=== PATIENT | male | born 1970 | race Caucasian/White ===

== ENCOUNTER → 2017-12-30 16:03 | Outpatient (CLI) | payer OTHER, SELFPAY ==
--- NOTE | 2017-12-30 16:20 | EKG12_ITS ---
Test Reason : PRE OP Blood Pressure : / mmHG Vent. Rate : 072 BPM Atrial Rate : 072 BPM P-R Int : 168 ms QRS Dur : 098 ms QT Int : 400 ms P-R-T Axes : 020 -33 019 degrees QTc Int : 438 ms Normal sinus rhythm Left axis deviation Incomplete right bundle branch block Minimal voltage criteria for LVH, may be normal variant Abnormal ECG Confirmed by DAKOTA BROOKS, BRET ([id number]), shell molder FRANCISCO SANCHEZ ([id number]) on 12/31/2017 2:36:08 PM Referred By: Letyt Bernabe Confirmed By:BRET DUNCAN MD
[2017-12-30 17:17] LABS: Hematocrit 44.2 % (40-54); Mean Corpuscular Volume 92.5 fL (80-94); Mean Platelet Vol. 9.8 fl (6.2-12.0); Platelet Count 197 K/mm3 (150-450); RBC Distribution Width SD 40.2 fl (35.1-43.9); Red Blood Count 4.78 M/mm3 (4.6-6.2); White Blood Count 5.7 K/mm3 (4.4-11.0)
[2017-12-30 17:55] LABS: Hemoglobin 15.6 g/dl (13.0-16.5); Mean Corp Hgb Conc 35.3 g/gl (32-36); Mean Corpuscular Hgb 32.6 pg (27.0-32.0); Scan Indicated on CBC? Y/N NO
[2017-12-30 18:22] LABS: Anion Gap 8 (5-15); BUN 14 mg/dL (7-18); BUN/Creat Ratio 15.7 RATIO (10-20); Calcium,Total 9.4 mg/dL (8.5-10.1); Chloride 104 mmol/L (98-107); Creatinine, Serum 0.89 mg/dL (0.70-1.30); EST Glomerular Filtration Rate 96 mL/min (>60); Est Glom Filt Rate - Afr Amer 116 mL/min (>60); Glucose 82 mg/dL (74-106); Potassium 3.9 mmol/L (3.5-5.1); Sodium Level 141 mmol/L (136-145)
== END ==
PROVIDERS: Family Provider Internal Medicine; PCP Internal Medicine; Visit Provider Nurse Practitioner Adult Health
DX: Z01.812 Encounter for preprocedural laboratory examination (principal); N43.3 Hydrocele, unspecified
CPT/HCPCS: 36415; 80048; 85027; 93005

== ENCOUNTER → 2018-01-24 11:39 | Outpatient (CLI) | payer OTHER, SELFPAY ==
--- NOTE | 2018-01-24 15:31 | STRESSREP ---
Stress Test Report Exercise stress test. 48-year-old male with a history of chest pain. Stress protocol: Resting EKG demonstrates normal sinus rhythm with a rate of 68 bpm normal intervals and noted resting blood pressure is 118/76 centimeters of mercury. The patient exercised according to regular Roderick protocol for total duration of 9 minutes and 30 seconds. Patient completed 30 seconds to stage III of the Roderick protocol the maximum heart rate attained was 151 bpm which was 88% of maximum predicted heart rate the maximum workload attained was 10.9 metabolic equivalents. The patient maintained sinus rhythm throughout the recording. At rest there were no ST or T-wave changes noted suggest ischemia peak exercise no ST or T-wave changes were noted suggest ischemia no clinical angina was noted. The test was terminated due to completion of the test. Conclusion: Exercise stress test with no EKG criteria for ischemia at a high workload. Good functional capacity. No clinical angina noted.
== END ==
PROVIDERS: Family Provider Internal Medicine; PCP Internal Medicine
DX: Z01.818 Encounter for other preprocedural examination (principal); I45.10 Unspecified right bundle-branch block
CPT/HCPCS: 93017

== ENCOUNTER 2020-11-17 16:23 | Emergency (ER) | payer OTHER, BC, SELFPAY ==
[2020-11-17 16:24] VITALS: BP 155/87; PULSE 86; RESP 16; TEMP 37.1; O2SAT 98; BMI 28.4
--- NOTE | 2020-11-17 16:46 | EX.ED.UPPERE ---
HPI History of Present Illness Chief Complaint: Upper Extremity Injury Informant: patient Narrative Narrative: 50-year-old male states that 4 days ago he was lifting a industrial fan and trying to turn it over with pronation when he got an electric shock into his arm. He states now his bicep muscle does not look appropriately. He denies any significant pain or bruising. He is worried that he may have tore his biceps. Patient denies any pain. He denies any paresthesias PFSH PFSH no medical history Allergy/AdvReac Type Severity Reaction Status Date / Time No Known Allergies Allergy Verified 11/17/20 16:29 no surgical history (Noncontributory) Social History (Updated 11/17/20 @ 16:[address] Venkat Tracy, DO) household members: significant other Smoking Status: Never smoker ROS ROS ED Constitutional Constitutional ED: Denies chills or weight loss Eyes Eyes: Denies change in vision or diplopia ENT ENT ED: Denies ear pain, rhinorrhea or sore throat Cardiovascular Cardiovascular: Denies chest pain, orthopnea, palpitations or racing heartbeat Respiratory/Chest Respiratory/Chest: Denies cough, dyspnea or orthopnea Gastrointestinal Gastrointestinal: Denies abdominal pain, diarrhea, nausea or vomiting Genitourinary Genitourinary ED: Denies dysuria, hematuria or urinary frequency Musculoskeletal Musculoskeletal: Reports other Details: Right biceps injury ; Denies arthralgias or myalgias Integumentary Denies abscess or rash Neurologic Neurologic: Denies headache(s) or weakness Psychiatric Psychiatric: Denies anxiety, depression, suicidal ideation or suicidal thoughts Endocrine Endocrinology: Denies polydipsia, polyphagia or polyuria Allergic/Immunologic Allergic/Immunologic ED: Denies mouth swelling, tongue swelling or urticaria EXAM Physical Exam Const Vital Signs: 11/17/20 16:24 Temperature 98.7 F Temperature Source Temporal Pulse Rate 86 Respiratory Rate 16 Blood Pressure 155/87 H Blood Pressure Mean 109 Pulse Ox 98 Oxygen Delivery Method Room Air Positive well nourished and well developed General Appearance ED: well developed HEENT Reports normocephalic, head/scalp atraumatic and moist mucous membranes Eyes PERRL and EOMs intact bilaterally Neck no lymphadenopathy, supple and no JVD Resp normal respiratory effort and clear to auscultation bilaterally Cardio regular rate, regular rhythm and no murmurs GI normal to inspection, nondistended, normoactive bowel sounds and non-tender Palpation: soft Back/Spine no CVA tenderness and normal ROM Extremity normal to inspection Extremity Narrative: There is an abnormal appearance to the biceps on the right. It appears that he has had a disruption of the long head of the biceps tendon. Neurovascular intact distal. Patient has no pain at the origin or the insertion points of the muscle. General Extremety ED: Negative for edema General Extremity: Negative for edema Neuro oriented x3 and CN's II-XII intact bilaterally Sensorium / Orientation: alert Motor Exam: strength 5/5 throughout Psych mental status grossly normal Mood & Affect: Negative for depressed or tearful Skin no rashes or lesions noted and no wounds MDM MDM MDM Narrative Medical decision making narrative: The patient will be referred to orthopedics. Dr. Cristhian Jones is on-call for no doc orthopedics. Patient will be given work restrictions. Discharge Plan Triage Chief Complaint: Upper Extremity Injury ED Provider: Venkat Tracy Dx/Rx/DC Orders Clinical Impression: Biceps tendon rupture Primary Care Provider: Brandyn García Referrals: Crishtian Jones MD [STAFF PHYSICIAN] - As soon as possible Brandyn García MD [Primary Care Provider] - Disposition Disposition: Home, self care
[2020-11-17 17:32] VITALS: RESP 16
== END 2020-11-17 17:32 | disposition home or self-care (01) ==
PROVIDERS: Emergency Provider Emergency Medicine; PCP Internal Medicine
DX: S46.111A Strain of muscle, fascia and tendon of long head of biceps, right arm, initial encounter (principal); W86.8XXA Exposure to other electric current, initial encounter; Y93.9 Activity, unspecified; Y92.9 Unspecified place or not applicable
CPT/HCPCS: 99283

== ENCOUNTER 2025-07-11 14:51 | Emergency (ER) | payer BC, SELFPAY ==
[2025-07-11 14:52] VITALS: BP 144/96; PULSE 70; RESP 16; TEMP 36.3; O2SAT 100; BMI 27.3
--- NOTE | 2025-07-11 15:11 | EX.ED.DYSGE1 ---
HPI History of Present Illness Chief Complaint: Lower Extremity Injury PFSH PFSH Allergy/AdvReac Type Severity Reaction Status Date / Time No Known Allergies Allergy Verified 07/11/25 14:53 Social History household members: significant other Smoking Status: Never smoker EXAM Physical Exam Const Vital Signs: 07/11/25 14:52 07/11/25 16:13 Temperature 97.4 F L 98.1 F Temperature Source Oral Pulse Rate 70 74 Respiratory Rate 16 14 Blood Pressure 144/96 H 127/74 H Blood Pressure Mean 112 91 Pulse Ox 100 98 Oxygen Delivery Method Room Air [facility] [place] Narrative Medical decision making narrative: HISTORY OF PRESENT ILLNESS: Chief complaint: Right leg pain 55-year-old male presents concern for right calf pain but he denies injury. Denies chest pain, shortness of breath or syncope. Notes pain in his right calf that started this morning. Pain is worse with walking and plantarflexion. No known trauma. Patient denies active cancer, being bedridden for greater than 3 days, denies unilateral leg swelling, denies any varicose veins, denies any calf tenderness, denies tenderness along deep venous system. Denies major surgery within 12 weeks, recent paralysis, previous DVT. REVIEW OF SYSTEMS: Pertinent positives: Right calf pain Pertinent negatives: Chest pain, shortness of breath PHYSICAL EXAM: Nursing triage notes reviewed, Vital signs reviewed Constitutional: please see [facility] Neck: No stridor, no JVD, full neck ROM Lungs: Clear to auscultation, No wheezing or rales. No increased work of breathing, no conversational dyspnea, no accessory muscle use, no nasal flaring. No respiratory distress noted Heart: Regular rate and rhythm, No murmurs, No rubs and No gallops, 2+ distal pulses (radial, femoral, posterior tibial) in all extremities Extremities: No edema, grossly symmetric leg diameter bilaterally, no obvious deformities, slight calf tenderness. Neuro: N intact sensation L1-S1 dermatomal distributions. Intact 5/5 strength in hip flexion (T12-L3). Knee extension (L2-L4). Ankle dorsiflexion (L4-L5). Ankle plantar flexion (S1). Great toe extension (L5). 2+ patellar and Achilles DTRs. Skin: No rash or lesions noted MEDICAL DECISION MAKING: Chief Complaint: please see HPI External records reviewed: Reviewed prior imaging studies: No recent advanced imaging of the extremities specifically no venous duplex studies noted Factors affecting care: none Social determinants of health: none History obtained from others: none Consults: none MDM Narrative: The patient was initially hemodynamically stable, afebrile and nontoxic-appearing. Exam with right calf TTP but no obvious lower extremity edema I considered the following differential diagnosis: Musculoskeletal etiology, DVT I obtained duplex ultrasound to further determine if the patient was suffering from a life-threatening etiology. ALL IMAGES (IF OBTAINED) HAVE BEEN PERSONALLY REVIEWED AND INTERPRETED BY MYSELF. DVT study was reported as negative by painter decorator. The synthesis of the patient's history, physical exam and imaging studies suggest likely musculoskeletal etiology. Encouraged calf stretching, light strengthening after approximate 24 to 48 hours of rest. Discussed strict return precautions. The patient and/or family, caregivers express understanding. The patient and/or family, caregivers agrees with the plan. Shared decision making: I will have a discussion with the patient and or visitors regarding risk/benefits of further testing or admission. They will be made aware of of the risk/benefits inherent in this decision they will be given the opportunity to voice understanding. Total critical care time today provided was at least 0 minutes. This excludes separately billable procedures. Critical care time (if documented) is secondary to the patient having high probability of clinically significant/life threatening deterioration in the patient's condition which required my urgent intervention. Impression: 1. Right calf pain Dispo: Discharge This note was generated with [employer] dictation software. It may contain incorrect words, spelling, and punctuation that were not noted in review of the chart prior to signing. Discharge Plan Triage Chief Complaint: Lower Extremity Injury ED Provider: Kamar Taylor Dx/Rx/DC Orders Instructions: Lower Body Exercises: Calf Stretch, Calf Raise (Strength), ED Muscle Strain, Extremity Primary Care Provider: Brandyn García Referrals: Brandyn García MD [Primary Care Provider, Internal Medicine] Activity Restrictions/Additional Instructions: Thank you for trusting us with your care today! The ultrasound of your lower extremity did not reveal signs of a blood clot. You are likely suffering from musculoskeletal strain. Please rest for the first 24 to 48 hours. After this time please begin stretching and strengthening exercises. Please see provided handout. Please take Tylenol (2 pills, 650 mg), ibuprofen (2 pills, 400 mg) every 6 hours as needed for pain and fever control. Please return to the emergency department if your symptoms change or worsen. Specifically develop chest pain, shortness of breath, severe leg pain, discoloration or if you lose consciousness. Please follow with your primary care physician for further outpatient evaluation and management. Print Language: Mozambican Disposition Disposition: Home, Self Care Discharge Date/Time: 07/11/25 16:14
--- NOTE | 2025-07-11 15:22 | VDLE_ITS ---
Reason For Study Reason For Study: RLE Pain RIGHT GSV is normal. CFV is compressible, spontaneous, phasic, competent and demonstrates normal augmentation. FV is compressible, spontaneous, phasic, competent and demonstrates normal augmentation. POP V is compressible, spontaneous, phasic, competent and demonstrates normal augmentation. T/P Trunk is compressible. PTV is compressible. RT PerV is compressible. Procedure This is a venous duplex using B-mode, color flow and spectral Doppler. Exam performed portable in ED. The exam was diagnostic. A preliminary report was called and/or faxed to Dr Taylor. VL/Venous Duplex US, Unilateral Interpretation Summary Deep veins of the right lower extremity are patent and compressible segmentally . There is no evidence of right lower extremity deep vein thrombosis. Valvular competence appears intact within the p roximal deep venous system on the right . The right great saphenous vein appears patent and compressible segmentally. Ordering Physician: Kamar Taylor Referring Physician: Brandyn García M.D. Performed By: Dereck Corbett RVT
--- OUTSIDE RECORDS SUMMARY | 2025-07-11 15:55 | XMS RPT_ITS | CCD ---
Author Organization [facility] Inform ion Partnership [facility] Care Team Providers Care Loading Shovel Oiler Name Role Phone LYNDSAY HANCOCK Unavailable Unavailable Brandyn Myers Unavailable Unavailable Brandyn Myers Unavailable Unavailable Brandyn Myers MD Primary Care Provider [phone] Lelo BUSINESS SOLUTIONS CONSULTANT.Sumaya FRANCISCO Unavailable [phone] SUMAYA LIND Attending Unavailable BRANDYN MYERS Primary Care Unavailable BRANDYN MYERS Attending Unavailable BRANDYN MYERS Primary Care Unavailable ANABEL PRESLEY Attending Unavailable BRANDYN MYERS Referring Unavailable BRANDYN MYERS Primary Care Unavailable NICOLE ARTEAGA Referring Unavailable BRANDYN MYERS Primary Care Unavailable Medications Current Medications Medication Drug Class(es) Dates Sig (Normalized) Sig (Original) L.acid/B.bifidum/B.an imal/FOS (PROBIOTIC COMPLEX ORAL) (7 sources) take 1 capsule by mo ut once daily L.acid/B.bifidum/B.a nimal/FOS (PROBIOTIC COMPLEX ORAL) Take 1 capsule by mouth once daily. Active take 1 capsule by mo uth once daily L.acid/B.bifidum/B.animal/FOS (PROBIOTIC COMPLEX ORAL) Take 1 capsule by mouth once daily. 0 Active meloxicam 15 mg oral tablet (1 source) Nonsteroidal Anti-inflammatory Drug Start: 05-22-2024 End: 06-21-2024 take 1 tablet by mouth once daily meloxicam (MOBIC) 15 mg tablet Indications: Arthritis of right acromioclavicular joint Take 1 tablet by mouth once daily. 30 tablet 05/22/2024 06/21/2024 Active Multivitamin preparation (7 sources) take 1 tablet by mouth once daily multivitamin (DAILY MULTIPLE ORAL) Take 1 tablet by mouth once daily. Active take 1 tablet by mouth once vladimir y multivitamin (DAILY MULTIPLE ORAL) Take 1 tablet by mouth once daily. 0 Active Completed/Discontinued Medications Medication Drug Class(es) Dates Sig (Normalized) Sig (Original) bisacodyl 5 mg delayed release oral tablet (6 sources) Stimulant Laxative Start: 01-06-2021 End: 10-18-2024 Bisacodyl (DULCOLAX) 5 mg tab Indications: Lower abdominal pain , Change in bowel habits Use as directed for Miralax / Gatorade Bowel Prep Kit 4 tablet 01/06/2021 10/18/2024 Discontinued (Course of therapy completed) polyethylene glycol 3350 27921 mg powder for oral solution (6 sources) Osmotic Laxative Start: 01-06-2021 End: 10-18-2024 polyethylene glycol 3350 (MIRALAX, GLYCOLAX) 17 gram/dose powder Indications: Lower abdominal pain , Change in bowel habits Use as directed for Miralax / Gatorade Bowel Prep Kit 238 g 01/06/2021 10/18/2024 Discontinued (Course of therapy completed) predniSONE 10 mg oral tablet (2 sources) Start: 05-22-2024 End: 10-18-2024 predniSONE (DELTASONE) 10 mg tablet Indications: Arthritis of right acromioclavicular joint 6 tabs po day 1, then 5 tabs day 2, 4 tabs day 3, 3 tabs day 4, 2 tabs day 5, 1 tab day 6. 21 tablet 05/22/2024 10/18/2024 Discontinued (Course of therapy completed) Problems Active Problems Problem Classification Problem Date Documented Date Episodic/Chronic Conduction disorders (7 sources) Incomplete right bundle branch block; Translations: [Unspecified right bundle-branch block] Onset: 01-03-2018 01-03-2018 Chronic Osteoarthritis (1 source) Arthritis of right acromioclavicular joint; Translations: [Primary osteoarthritis, right shoulder] 05-22-2024 Chronic Other connective tissue disease (2 sources) Tendinitis of right rotator cuff; Translations: [Other shoulder lesions, right shoulder] 02-16-2024 Episodic Other male genital disorders (7 sources) Secondary erectile dysfunction; Translations: [Male erectile dysfunction, unspecified] Onset: 11-19-2017 11-19-2017 Chronic Other screening for suspected conditions (not mental disorders or infectious disease) (1 source) Other specified abnormal findings of blood chemistry; Translations: [Other nonspecific findings on examination of blood] 02-16-2024 Episodic Screening and history of mental health and substance abuse codes (2 sources) Patient encounter status; Translations: [Encounter for screening for depression] 02-16-2024 Episodic Past or Other Problems Problem Classification Problem Date Documented Da te Episodic/Chronic Other connective tissue disease (8 sources) Disorder of Achilles tendon; Translations: [Other specified disorders of tendon, right ankle and foot] Onset: 02-16-2024 02-16-2024 Episodic Other connective tissue disease (1 source) Other shoulder lesions, right shoulder; Translations: [Tendinitis of right rotator cuff] Onset: 05-22-2024 Episodic Other male genital disorders (7 sources) Disorder of reproductive system; Translations: [Hydrocele, unspecified] Onset: 03-08-2015 Resolved: 08-18-2017 08-18-2017 Episodic Other male genital disorders (7 sources) Disorder of male genital organ; Translations: [Hydrocele, unspecified] Onset: 08-18-2017 Resolved: 11-05-2020 11-05-2020 Episodic Other non-traumatic joint disorders (3 sources) Pain in right shoulder; Translations: [Pain in joint, shoulder region] Onset: 05-22-2024 05-01-2024 Episodic Residual codes; unclassified (8 sources) Tobacco use and exposure - finding; Translations: [Tobacco use] Onset: 03-08-2015 07-14-2021 Episodic Results Test Name Value Interpretation Reference Range Facil aiyana Horvath 02-05-2025 [facility] Telephone (INTMWS) ERVIN RING ([id number]) 1970 M Date Time Provider Department 02/05/25 BRANDYN MYERS INTMWS During your visit today, we recorded the following information about you: Zulema Rooney RN 02/05/2025 3:09 PM Signed Spouse (Brittany) calls to report that patient had blood work done through [facility] and some of his results were off including his liver enzymes but she was unsure of actual results as she didn't have them with her. Brittany wanting provider to review. Reports she is dropping a copy of labs off tomorrow. Offered appointment but wants labs reviewed by provider first. LIANA Meneses Janice, LPN 02/08/2025 10:04 AM Signed Rec'd and to pcp to review. AST was 42 Normal range per report is 0-40 Brandyn Myers MD 02/11/2025 12:09 PM Signed This is of doubtful significance. If he has no symptoms of liver or GI disease, monitor only and recheck next year here in our lab. Consume alcohol in moderation. Maintain a healthy weight. Schedule appointment if with related concerns. Marilou Varner LPN 02/12/2025 8:24 AM Signed Brittany/ notified of below recommendation, verbalized understanding. Offered to schedule appt for 10/2025, she declined, will call for annual with lab orders. Marilou Varner LPN Allergies As of Date: 02/05/2025 (No Known Allergies) Date Reviewed: 10/18/2024 Reviewed by: Sumaya Lind APRN.WIRE DROPPER - Fully Assessed Reason for Visit: Results [95] Prescriptions as of 02/12/2025 - multivitamin (DAILY MULTIPLE ORAL) Take 1 tablet by mouth once daily. - L.acid/B.bifidum/B.anim al/FOS (PROBIOTIC COMPLEX ORAL) Take 1 capsule by mouth once daily. Problem List As Of Date 02/05/2025 Noted Resolved Hydrocele, left [N43.3] 03/08/2015 08/18/2017 Tobacco use [Z72.0] 03/08/2015 Right hydrocele [N43.3] 08/18/2017 11/05/2020 Impotence of organic origin [N52.9] 11/19/2017 Incomplete RBBB w/ left axis deviation [I45.10] 01/03/2018 Achilles tendinosis of both ankles [M67.873, M6*02/16/2024 Encounter Status:Closed by MARILOU VARNER on 02/12/25 Normal [facility] CNOVon 10-18-2024 CNOV Office Visit (INTMWS ) ERVIN RING ([id number]) 1970 M Date Time Provider Department 10/18/24 6:00 PM SUMAYA LIND INTMWS During your visit today, we recorded the following information about you: Pulse Respiration Blood pressure Weight 79/minute 12/minute 124/80 81.6 kg Height 1.68 m Sumaya Lind, BUSINESS SOLUTIONS CONSULTANT.WIRE DROPPER 10/18/2024 6:20 PM Signed We discussed your overall health and physical exam findings: - Your physical exam today was normal, and I do not have any concerns based on the exam. - Your blood pressure was initially elevated at 142/90 but improved to 124/80 when rechecked. This is consistent with your usual readings at home, which are typically in the 120/80 range. No further action is needed at this time. - Your weight today was 179 lbs, which is consistent with your previous weight of 176 lbs. We discussed your lifestyle and habits: - You reported that you are active at work but do not engage in specific exercise routines. I encourage incorporating regular physical activity into your routine to support overall health. - Your diet could include more fruits, vegetables, and whole grains. Consider making small, gradual changes to improve your nutrition. - You no longer smoke but do chew tobacco. Reducing or quitting tobacco use is recommended to lower your risk of long-term health issues. - You drink alcohol occasionally, about a few beers per week. Continue to limit alcohol consumption to support liver health and overall well-being. We discussed your preventive care and screenings: - Your colonoscopy in 2020 was normal, and you are not due for another until 2030. - You are up to date on all other screenings, including blood work and liver enzyme testing, which were normal at your last [facility] screening. - You declined the pneumonia vaccine today. We discussed your interest in vitamin and mineral levels: - Routine testing for vitamin and mineral levels is not typically recommended unless you have specific symptoms such as fatigue, dizziness, or shortness of breath. Based on your current health and diet, there is no indication for testing at this time. - If you are concerned about vitamin D levels, you may consider taking a vitamin D supplement during the winter months, as sunlight exposure is limited. Follow-up: - I recommend scheduling an annual physical exam once a year to monitor your health and address any new concerns. You can schedule this closer to the time it is due. - If you experience any new or worsening symptoms, such as chest pain, shortness of breath, significant fatigue, or other concerns, please contact our office. Let us know if you have any additional questions or concerns. Sumaya Lind, BUSINESS SOLUTIONS CONSULTANT.[facility] 10/18/2024 6:30 PM Signed CC: Patient presents with: Physical HPI The patient consented to the use of [employer] software for draft documentation of the visit consistent with [facility]?s Notice of Privacy Practices. Ervin is a 54-year-old male, with a history of tobacco use, presenting for an annual physical exam. Ervin denies any new medical problems since his last visit. He reports a history of smoking but quit years ago and currently uses chewing tobacco. He consumes alcohol, approximately a few beers per week, and denies any drug use, including e-cigarettes or vaping. Ervin is not currently exercising but describes himself as active at work. He acknowledges that his diet is not as healthy as he would like, stating, I should really get more than what I do. He takes a multivitamin and a probiotic. He expresses a desire to know his vitamin and trace mineral levels, asking if he could pay for the tests himself. He also inquires about tests to check his liver function and whether he has a fatty liver. He denies any new family medical problems. He had a colonoscopy in 2020 and is up to date on his screenings. He declines the flu and pneumonia vaccines. Review of Systems Constitutional: Negative. HENT: Negative. Eyes: Negative. Respiratory: Negative. Cardiovascular: Negative. Gastrointestinal: Negative. Endocrine: Negative. Genitourinary: Negative. Skin: Negative. Neurological: Negative. 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 MEDICATIONS multivitamin (DAILY MULTIPLE ORAL) Take 1 tablet by mouth once daily. L.acid/B.bifidum/B.anim al/FOS (PROBIOTIC COMPLEX ORAL) Take 1 capsule by mouth once daily. FAMILY HISTORY Problem Rela (more content not included)... 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 Referred by Dr. Myers. States in February he went swimming and thinks he over did it. He had no swam for years. 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 He has pain with certain movements. X-rays done today. Anabel Presley PA-C 05/26/2024 2:23 PM Signed Anabel Presley PA-C Department of Orthopaedics [facility] [address] [place] [address] Dept: [phone] Dept May 22, 2024 CHIEF COMPLAINT: New and Pain of the Right Shoulder and Last seen 09/16/17 with BP Right thumb fracture Mr. Ervin Ring is a 54 year old male who presents with intermittent pain in the anterior aspect of his right shoulder which has been bothering him since this past February. Patient states that he was out swimming and he believes he may have overdone it. Pain today is a 3 out of 10 intermittent aching. Pain only bothers him with certain activities, he has difficulty discerning which activities. He denies any nighttime pain, no weakness in the arm. 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 He has not taken any type of an oral anti-inflammatory. He is right-hand dominant. ASSESSMENT: M19.011 Arthritis of right acromioclavicular joint (primary encounter diagnosis) PLAN: Shoulder exam is rather benign, he does have some AC joint arthritis. We discussed trying a short course of an oral steroid paired with a month of an anti-inflammatory. Certainly if shoulder pain persist we may consider some additional imaging of the shoulder and/or a corticosteroid injection. Patient agrees to plan. Happy to see him back next month for reevaluation. Will continue to monitor patient for Arthritis of right acromioclavicular joint (primary encounter diagnosis), patient to schedule visit as per follow up discussed. Mr. Ervin Ring was advised as to contrast therapies and/or to take analgesics/anti-inflamm atories as needed and all contraindications were reviewed. OBJECTIVE: Mr. Ervin Ring is a pleasant 54 year old in no apparent distress. Gen:There were no vitals taken for this visit. nl development, non obese, no deformities ENT: Normocephalic, normal hearing, moist mucosa CV: Pulses:Radial= 2+ and symmetric, capillary refill < 2 secs, no peripheral edema/varicosities Skin: no rash, bruising or lesions. Good turgor. Psych: cooperative and appropriate, alert and oriented x 3, good mood and affect. Musculoskeletal: Supple range of motion of the cervical spine without pain. Spurling signs are negative. No atrophy of the deltoid and shoulder musculature. Right shoulder is nontender to palpation over the SC joint and clavicle. Tender to palpation over the AC joint. No tenderness to palpation over the posterior shoulder, nontender at anterior lateral corner of the shoulder and greater tuberosity. Nontender at the bicipital groove and coracoid. Active range of motion is 165 degrees of forward elevation, 50 degrees external rotation, and internal rotation to the upper lumbar spine. Passive range of motion is 170 degrees, 55 degrees, respectively. No laxity with anterior and posterior stress. Positive Neer and negative Membreno impingement signs. 5/5 strength with supraspinatus, infraspinatus and subscapularis. Sensation is intact in the axillary, radial, median and ulnar nerve distribution Imaging: IMPRESSION: Negative Administrative Services Manager: MARLA Transcribe Date/Time: May 26 2024 11:14A Dictated by : JOCELYN CARDENAS MD This examination was interpreted and the report reviewed and electronically signed by: JOCELYN CARDENAS MD on May 26 2024 11:15AM EST Results-Findings * * *Final Report* * * DATE OF EXAM: May 22 2024 2:15PM [id number] - XR SHLDR >/=3V AP/EVETTE AP/OTHR RT / PROCEDURE REASON: Right shoulder pain, unspecified chronicity * * * * Physician Interpretation * * * * PROCEDURE: Right shoulder INDICATION: Right shoulder pain, unspecified chronicity .Right shoulder pain since February, pt went swimming and shoulder has hurt ever since. TECHNIQUE: XR SHLDR >/=3V AP/EVETTE AP/OTHR RT COMPARISON: None FINDINGS: No fractures or dislocations are seen. The glenohumeral and acromioclavicular joints are within normal limits. (more content not included)... Normal [facility] XR SHLDR >/=3V AP/EVETTE AP/OTH R RTon 05-22-2024 XR SHLDR >/=3V AP/EVETTE AP/OTHR RT * * *Final Report* * * DATE OF EXAM: May 22 2024 2:15PM [id number] - XR SHLDR >/=3V AP/EVETTE AP/OTHR RT / PROCEDURE REASON: Right shoulder pain, unspecified chronicity * * * * Physician Interpretation * * * * PROCEDURE: Right shoulder INDICATION: Right shoulder pain, unspecified chronicity .Right shoulder pain since February, pt went swimming and shoulder has hurt ever since. TECHNIQUE: XR SHLDR >/=3V AP/EVETTE AP/OTHR RT COMPARISON: None FINDINGS: No fractures or dislocations are seen. The glenohumeral and acromioclavicular joints are within normal limits. Subacromial space is maintained. No significant degenerative change is seen. No soft tissue calcifications are seen. Upper ribs are intact. IMPRESSION: Negative Administrative Services Manager: PSCB Transcribe Date/Time: May 26 2024 11:14A Dictated by : JOCELYN CARDENAS MD This examination was interpreted and the report reviewed and electronically signed by: JOCELYN CARDENAS MD on May 26 2024 11:15AM EST [id number] Normal [facility] 04-17-2024 [facility] Telephone (INTMWS) ERVIN RING ([id number]) 1970 M Date Time Provider Department 04/17/24 BRANDYN MYERS INTWS During your visit today, we recorded the following information about you: Abby Smith LPN 04/17/2024 9:25 AM Signed Pt's calling to see if pt can get a referral to a specialist regarding his right shoulder. Pain persisting. Pt has an apt with you on Wednesday04/21/24 and also wondering if he needs this if you are okay with referring him to a specialist. Please advise back. If she does not answer please leave a detailed message on phone and she will call back. ERASMO Prescott Victor H, MD 04/17/2024 11:51 PM Signed ASSESSMENT/PLAN: 1. Tendinitis of right rotator cuff - ICD9: 726.10, ICD10: M75.81 - CONSULT TO ORTHOPAEDICS MD Telly Mckeon Helen E, LPN 04/18/2024 10:14 AM Signed Please call to schedule consult. La Alvarez LPN, RN 04/18/2024 1:40 PM Signed Patient's calls and notified that consult order placed. transferred to formulation scientist to schedule appointment. La Mcmanus RN Allergies As of Date: 04/17/2024 (No Known Allergies) Date Reviewed: 02/16/2024 Reviewed by: Marilou Varner LPN - Fully Assessed Reason for Visit: Consult [502] Primary Visit Diagnosis:Tendinitis of right rotator cuff [M75.81] Order(s):CONSULT TO ORTHOPAEDICS [9026] Order #: [id number]: 1 FUTURE Prescriptions as of 04/18/2024 - multivitamin (DAILY MULTIPLE ORAL) Take 1 tablet by mouth once daily. - L.acid/B.bifidum/B.anim al/FOS (PROBIOTIC COMPLEX ORAL) Take 1 capsule by mouth once daily. - polyethylene glycol 3350 (MIRALAX, GLYCOLAX) 17 gram/dose powder Use as directed for Miralax / Gatorade Bowel Prep Kit - Bisacodyl (DULCOLAX) 5 mg tab Use as directed for Miralax / Gatorade Bowel Prep Kit Problem List As Of Date 04/17/2024 Noted Resolved Hydrocele, left [N43.3] 03/08/2015 08/18/2017 Tobacco use [Z72.0] 03/08/2015 Right hydrocele [N43.3] 08/18/2017 11/05/2020 Impotence of organic origin [N52.9] 11/19/2017 Incomplete RBBB w/ left axis deviation [I45.10] 01/03/2018 Achilles tendinosis of both ankles [M67.873, M6*02/16/2024 Encounter Status:Closed by LA MCMANUS on 04/18/24 [facility] CNOVon 02-16-2024 CNOV Office Visit (INTMWS ) ERVIN RING ([id number]) 1970 M Date Time Provider Department 02/16/24 3:40 PM BRANDYN MYERS INTMWS During your visit today, we recorded the following information about you: Temperature Pulse Respiration Blood pressure 98.6 degrees 76/minute 16/minute 122/76 Weight 79.8 kg Brandyn Myers MD 02/16/2024 5:36 PM Signed This note was created using Tagentriter. Subjective Ervin Ring is a 54 year old male here with his . He had minor right shoulder pains off and on chronically. This weekend, he went swimming for the first time in decades. He woke up Wednesday with significant pain of the right anterior shoulder. This was improving now, without medication. He had chronic lumps in his heels that become uncomfortable at the end of the workday wearing his work boots. He had no pain wearing rubber shoes. He has been here only for urgent concerns, and does not come for check ups. He declined vaccines. He was here to review [facility] screening done 10/14/23. Review of Systems Constitutional: Negative for activity change and fatigue. 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 Drug use: No Comment: none in past 10 yrs Current Outpatient Medications Medication Sig multivitamin (DAILY MULTIPLE ORAL) Take 1 tablet by mouth once daily. L.acid/B.bifidum/B.anim al/FOS (PROBIOTIC COMPLEX ORAL) Take 1 capsule by mouth once daily. polyethylene glycol 3350 (MIRALAX, GLYCOLAX) 17 gram/dose powder Use as directed for Miralax / Gatorade Bowel Prep Kit (Patient not taking: Reported on 02/16/2024) Bisacodyl (DULCOLAX) 5 mg tab Use as directed for Miralax / Gatorade Bowel Prep Kit (Patient not taking: Reported on 02/16/2024) No current facility-administered medications for this visit. Objective BP 122/76 (BP Site: Left Arm, BP Position: Sitting, BP Cuff Size: Large Adult) Pulse 76 Temp 37 ?C (98.6 ?F) (Temporal) Resp 16 Wt 79.8 kg (176 lb) BMI 27.95 kg/m? Physical Exam Constitutional: Appearance: Normal appearance. Musculoskeletal: Right shoulder: Tenderness and crepitus present. No swelling, deformity or bony tenderness. Normal range of motion. Normal strength. Left shoulder: Normal. Right ankle: Right Achilles Tendon: Defect present. No tenderness. Root's test negative. Left ankle: Left Achilles Tendon: Defect present. No tenderness. Root's test negative. Comments: Bony exostoses of both posterior heels. Assessment and Plan 1. Tendinitis of right rotator cuff - ICD9: 726.10, ICD10: M75.81 (primary diagnosis) - Improved with no specific treatment. Avoid repetitive overuse motions. Analgesics if needed. 2. Achilles tendinosis of both ankles - ICD9: 726.71, ICD10: M67.873, M67.874 - Podiatry offered. He declined for now. Padding. 3. Screening for depression - ICD9: V79.0, ICD10: Z13.31 Negative. - DEPRESSION SCREENING 4. Encounter for screening examination for other mental health and behavioral disorders - ICD9: V79.8, ICD10: Z13.39 Negative. - ANXIETY SCREENING 5. Low serum testosterone - ICD9: 790.99, ICD10: R79.89 - I doubt significance. He is well developed. If he desires further work up schedule appointment, as hormone levels can fluctuate. Brandyn Myers MD Allergies As of Date: 02/16/2024 (No Known Allergies) Date Reviewed: 02/16/2024 Reviewed by: Marilou Varner LPN - Fully Assessed Reason for Visit: Right shoulder pain [Other] Primary Visit Diagnosis:Tendinitis of right rotator cuff [M75.81] Other Visit Diagnoses:Achilles tendinosis of both ankles [M67.873, M67.874] Screening for depression [Z13.31] Encounter for screening examination for other mental health and behavioral disorders [Z13.39] Low serum testosterone [R79.89] Order(s):DEPRESSION SCREENING [] Order #: [id number]: 1 ANXIETY SCREENING [] Order #: [id number]: 1 Prescriptions as of 02/16/2024 - multivitamin (DAILY MULTIPLE ORAL) Take 1 tablet by mouth once daily. - L.acid/B.bifidum/B.anim al/FOS (PROBIOTIC COMPLEX ORAL) Take 1 capsule by mouth once daily. - polyethylene glycol 3350 (MIRALAX, GLYCOLAX) 17 gram/dose powder Use as directed for Miralax / Gatorade Bowel Prep Kit - Bisacodyl (DULCOLAX) 5 mg tab Use as directed for Miralax / Gatorade Bowel Prep Kit Problem List As Of Date 02/16/2024 Noted Resolved (more content not included)... Normal [facility] Emergency Department Summary on 11-17-2020 Emergency Department Summary [facility] Medical Records Department [address] [place] [address] Emergency Department Summary 11/17/20 1646 MR#: [id number] Acct: [id number] Name: ERVIN RING Rep #: [id number] : 1970 50 From: Venkat Tracy DO PCP: Dr. Brandyn Myers MD Status:DEP ER Location: ED HPI History of Present Illness Chief Complaint: Upper Extremity Injury Informant: patient Narrative Narrative: 50-year-old male states that 4 days ago he was lifting a industrial fan and trying to turn it over with pronation when he got an electric shock into his arm. He states now his bicep muscle does not look appropriately. He denies any significant pain or bruising. He is worried that he may have tore his biceps. Patient denies any pain. He denies any paresthesias PFSH PFSH no medical history Allergy/AdvReac Type Severity Reaction Status Date / Time No Known Allergies Allergy Verified 11/17/20 16:29 no surgical history (Noncontributory) Social History (Updated 11/17/20 @ 16:[address] Venkat Tracy, DO) household members: significant other Smoking Status: Never smoker ROS ROS ED Constitutional Constitutional ED: Denies chills or weight loss Eyes Eyes: Denies change in vision or diplopia ENT ENT ED: Denies ear pain, rhinorrhea or sore throat Cardiovascular Cardiovascular: Denies chest pain, orthopnea, palpitations or racing heartbeat Respiratory/Chest Respiratory/Chest: Denies cough, dyspnea or orthopnea Gastrointestinal Gastrointestinal: Denies abdominal pain, diarrhea, nausea or vomiting Genitourinary Genitourinary ED: Denies dysuria, hematuria or urinary frequency Musculoskeletal Musculoskeletal: Reports other Details: Right biceps injury ; Denies arthralgias or myalgias Integumentary Denies abscess or rash Neurologic Neurologic: Denies headache(s) or weakness Psychiatric Psychiatric: Denies anxiety, depression, suicidal ideation or suicidal thoughts Endocrine Endocrinology: Denies polydipsia, polyphagia or polyuria Allergic/Immunologic Allergic/Immunologic ED: Denies mouth swelling, tongue swelling or urticaria EXAM Physical Exam Const Vital Signs: 11/17/20 16:24 Temperature 98.7 F Temperature Source Temporal Pulse Rate 86 Respiratory Rate 16 Blood Pressure 155/87 H Blood Pressure Mean 109 Pulse Ox 98 Oxygen Delivery Method Room Air Positive well nourished and well developed General Appearance ED: well developed HEENT Reports normocephalic, head/scalp atraumatic and moist mucous membranes Eyes PERRL and EOMs intact bilaterally Neck no lymphadenopathy, supple and no JVD Resp normal respiratory effort and clear to auscultation bilaterally Cardio regular rate, regular rhythm and no murmurs GI normal to inspection, nondistended, normoactive bowel sounds and non-tender Palpation: soft Back/Spine no CVA tenderness and normal ROM Extremity normal to inspection Extremity Narrative: There is an abnormal appearance to the biceps on the right. It appears that he has had a disruption of the long head of the biceps tendon. Neurovascular intact distal. Patient has no pain at the origin or the insertion points of the muscle. General Extremety ED: Negative for edema General Extremity: Negative for edema Neuro oriented x3 and CN's II-XII intact bilaterally Sensorium / Orientation: alert Motor Exam: strength 5/5 throughout Psych mental status grossly normal Mood Affect: Negative for depressed or tearful Skin no rashes or lesions noted and no wounds MDM MDM MDM Narrative Medical decision making narrative: The patient will be referred to orthopedics. Dr. Cristhian Jones is on-call for [facility]. Patient will be given work restrictions. Discharge Plan Triage Chief Complaint: Upper Extremity Injury ED Provider: Venkat Tracy Dx/Rx/DC Orders Clinical Impression: Biceps tendon rupture Primary Care Provider: Brandyn Myers Referrals: Cristhian Jones MD [STAFF PHYSICIAN] - As soon as possible Brandyn Myers MD [Primary Care Provider] - Disposition Disposition: Home, self care What to do if you have Problems For any increased pain, shortness of breath, bleeding, nausea or vomiting, chest pain, or any unexpected problems, contact your Primary Care Provider. Call [facility] ([phone]) or report to the closest Emergency Room. Call 911 if necessary. 11/18/20 0056 Cosigner Signature (if applicable): CC: Dr. Brandyn Myers MD Signed Normal [facility] Vital Signs Date Time Vital Sign Value Performing Clinician Betty zabala 10-18-2024 18:19-0400 Diastolic blood pressure 80 mm[Hg] Sumaya Lelo BUSINESS SOLUTIONS CONSULTANT.WIRE DROPPER Work Phone: [facility] 10-18-2024 18:19-0400 Systolic blood pressure 124 mm[Hg] Sumaya Lelo BUSINESS SOLUTIONS CONSULTANT.WIRE DROPPER Work Phone: [facility] 10-18-2024 17:56-0400 Body height 168 cm Sumaya Lelo BUSINESS SOLUTIONS CONSULTANT.WIRE DROPPER Work Phone: [facility] 10-18-2024 17:56-0400 Body mass index (BMI) [Ratio] 28.91 kg/m2 Sumaya Lelo BUSINESS SOLUTIONS CONSULTANT.WIRE DROPPER Work Phone: [facility] 10-18-2024 17:56-0400 Body weight 81.6 kg Sumaya Lelo BUSINESS SOLUTIONS CONSULTANT.WIRE DROPPER Work Phone: [facility] 10-18-2024 17:56-0400 Heart rate 79 /min Sumaya Lind BUSINESS SOLUTIONS CONSULTANT.WIRE DROPPER Work Phone: [facility] 10-18-2024 17:56-0400 Respiratory rate 12 /min Sumaya Lind BUSINESS SOLUTIONS CONSULTANT.WIRE DROPPER Work Phone: [facility] 10-18-2024 17:56-0400 SaO2% (BldA) [Mass fraction] 96 % Sumaya Lind BUSINESS SOLUTIONS CONSULTANT.WIRE DROPPER Work Phone: [facility] 02-16-2024 15:44-0400 Body mass index (BMI) [Ratio] 27.95 kg/m2 Brandyn Myers MD Work Phone: [facility] 02-16-2024 15:44-0400 Body temperature 98.6 [degF] Brandyn Myers MD Work Phone: [facility] 02-16-2024 15:44-0400 Body weight 79.83 kg Brandyn Myers MD Work Phone: [facility] 02-16-2024 15:44-0400 Diastolic blood pressure 76 mm[Hg] Brandyn Myers MD Work Phone: [facility] 02-16-2024 15:44-0400 Heart rate 76 /min Brandyn Myers MD Work Phone: [facility] 02-16-2024 15:44-0400 Respiratory rate 16 /min Brandyn Myers MD Work Phone: [facility] 02-16-2024 15:44-0400 Systolic blood pressure 122 mm[Hg] Brandyn Myers MD Work Phone: [facility] Encounters Encounter Date Encounter Type Care Provider Facility Start: 02-05-2025 End: 02-12-2025 Telephone encounter Brandyn Myers MD Work Phone: [facility] Comment on above: Results Start: 10-18-2024 End: 10-18-2024 ambulatory SUMAYA LIND Facility:[facility] Start: 10-18-2024 End: 10-18-2024 Patient encounter procedure Sumaya RenteriaLelo SUSANNAH.WIRE DROPPER Work Phone: [facility] Comment on above: Wellness examination (Primary Dx); Tobacco use Start: 10-18-2024 End: 10-18-2024 Patient encounter status Sumaya Lind BUSINESS SOLUTIONS CONSULTANT.WIRE DROPPER Work Phone: [facility] Work Phone: Start: 05-22-2024 End: 05-22-2024 Patient encounter procedure Anabel Presley PA-C Work Phone: Orthopaedics Comment on above: Arthritis of right a cromioclavicular joint (Primary Dx) Start: 05-22-2024 End: 05-22-2024 ambulatory ANABEL PRESLEY Facility:[facility] Start: 05-22-2024 End: 05-22-2024 Subsequent hospital visit by physician Razia [facility] [place] Work Phone: Radiology Comment on above: Right shoulder pain, unspecified chronicity [M25.511] Start: 05-01-2024 End: 05-02-2024 Orders Only Nicole Arteaga PA-C Work Phone: Orthopaedics Comment on above: Right shoulder pain, unspecified chronicity (Primary Dx) Start: 04-17-2024 End: 04-18-2024 Telephone encounter Brandyn Myers MD Work Phone: [facility] Comment on above: Consult Start: 02-16-2024 End: 02-16-2024 ambulatory BRANDYN MYERS Facility:[facility] Start: 02-16-2024 End: 02-16-2024 Patient encounter procedure Brandyn Myers MD Work Phone: [facility] Comment on above: Tendinitis of right rotator cuff (Primary Dx); Achilles tendinosis of both ankles; Screening for depression; Encounter for screening examination for other mental health and behavioral disorders; Low serum testosterone Start: 12-22-2017 Ambulatory LYNDSAY HANCOCK Facilit y:[facility] Procedures Date Procedure Procedure Detail Performing Clinician Start: 02-16-2024 Adult depression scr eening assessment Brandyn Myers MD Work Phone: Start: 10-14-2023 Lipid 1996 panel - S megan or Plasma Brandyn Myers MD Work Phone: Start: 02-07-2021 Colonoscopy Brandyn Sanchez MD Work Phone: Plan of Treatment Date Care Activity Detail Author Start: 02-07-2031 Screening for malign ant neoplasm of colon [facility] Start: 06-05-2030 Urine microalbumin profile DTaP,Tdap,Td Vaccine (3 - Td or Tdap) [facility] Start: 10-13-2028 Lipid panel Lipid Screening [facility] Start: 10-13-2028 Prostate specific antigen measurement Prostate Cancer Screening Discussion [facility] Start: 10-13-2026 Diabetes Screening Diabetes Screenin g [facility] Start: 10-18-2025 Pneumococcal Vaccine : 50+ (1 of 1 - PCV) Pneumococcal Vaccine: 50+ (1 of 1 - PCV) [facility] Comment on above: Postponed from 01/15 (Declined at this time) Start: 03-19-2025 Influenza vaccination Influenza Vacc ine (#1) [facility] Start: 02-15-2025 Anxiety Screening Anxiety Screening [facility] Start: 02-15-2025 Depression Screening Depression Scre ening [facility] Start: 2025 Influenza vaccination Influenza Vacc ine (#1) [facility] Comment on above: Postponed from 03/19 (Declined at this time) Start: 10-18-2024 End: 10-18-2024 Patient encounter procedure 10/18/2024 6:00 PM EDT Office Visit [facility] [address] [place], [place] [address] Sumaya Lind, BUSINESS SOLUTIONS CONSULTANT.WIRE DROPPER [address] [place], [place] [id number] Yearly w/8 month follow-up [facility] [place] Comment on above: Yearly w/8 month fol low-up Start: 05-12-2024 End: 10-25-2024 Patient encounter procedure Orthopaedics Comment on above: Tendinitis of right rotator cuff [M75.81] right shoulder Tendinitis of right rotator cuff Start: 03-19-2024 Influenza vaccination Influenza Vacc ine (#1) [facility] Start: 2014 Screening for malign ant neoplasm of colon [facility] End: 06-01-2025 XR Shoulder - right 3 Views XR SHOULDER GENERAL 3V OR MORE AP/TRUE AP/OTHER RIGHT Radiology Routine Right shoulder pain, unspecified chronicity 1 Occurrences starting 05/02/2024 until 06/01/2025 [facility] Work Phone: Comment on above: 1 Occurrences starti ng 05/02/2024 until 06/01/2025 XR Shoulder - right 3 Views XR SHOULDER GENERAL 3V OR MORE AP/TRUE AP/OTHER RIGHT Radiology Routine Right shoulder pain, unspecified chronicity 05/22/2024 2:15 PM EST [facility] Work Phone: Immunizations Immunization Date Immunization Notes Care Provider Althea staton 06-05-2020 tetanus toxoid, redu viktoriya diphtheria toxoid, and acellular pertussis vaccine, adsorbed Brandyn Myers MD Work Phone: [facility] 03-19-2015 tetanus toxoid, redu viktoriya diphtheria toxoid, and acellular pertussis vaccine, adsorbed Brandyn Myers MD Work Phone: [facility] Payers Date Payer Category Payer [employer] BLUE CARD PPO OOS [id number] 2021 Unknown [id number] 2020 Unknown [id number] 2020 Unknown [id number] Private Health Insurance [id number] Social History Date Type Detail Facility Start: 02-16-2024 End: 10-18-2024 Tobacco smoking status NHIS Ex-smoker [facility] Start: 07-19-1993 End: 07-19-1999 History of tobacco use Current smoker [facility] Start: 07-19-1993 End: 07-19-1999 History of tobacco use Cigarette Smoker [facility] Start: 02-16-2024 End: 10-18-2024 Cigarettes smoked current (pack per day) - Reported 1 [facility] Start: 02-16-2024 End: 10-18-2024 Tobacco use and exposure User of smokeless tobacco [facility] History of tobacco use Chews Tobacco [facility] Start: 02-16-2024 End: 02-11-2025 Alcohol intake Current drinker of alcohol (finding) [facility] Start: 02-16-2024 End: 10-18-2024 Tobacco use panel [facility] Adult Depression Scr eening Assessment 0 [facility] Start: 02-16-2024 Tobacco Comment chews tobacco daily [facility] Start: 01-05-2018 Alcohol Comment one beer daily. [facility] Start: 1970 Sex Assigned At Not on file C [facility] Start: 10-18-2024 Alcoholic beverage intake Ex-drinker (finding) [facility] Functional Status Date Assessment Result Facility 02-07-2015 Are you deaf, or do you have serious difficulty hearing No 02/07/2015 2:52 PM EDT Daenna De La Cruz LPN No [facility] 02-07-2015 Are you blind, or do you have serious difficulty seeing, even when wearing glasses No 02/07/2015 2:52 PM Deanna Anthony LPN No [facility] 02-07-2015 Do you have serious difficulty walking or climbing stairs No 02/07/2015 2:52 PM MARIELYT Deanna De La Cruz LPN No [facility] 02-07-2015 Do you have difficul ty dressing or bathing No 02/07/2015 2:52 PM Deanna Anthony LPN No [facility] 02-07-2015 Because of a physica l, mental, or emotional condition, do you have difficulty doing errands alone such as visiting a physician's office or shopping No 02/07/2015 2:52 PM EDT Deanna De La Cruz LPN No [facility] Mental Status Date Assessment Result Facility 02-07-2015 Because of a physica l, mental, or emotional condition, do you have serious difficulty concentrating, remembering, or making decisions No 02/07/2015 2:52 PM EDT Deanna De La Cruz LPN No [facility] Clinical Notes 02-16-2024 to 02-12-2025 Telephone Encounter - Marilou Varner LPN - 02/12/2025 8:23 AM EDTTelephone Encounter - Marilou Varner LPN - 02/12/2025 8:23 AM EDSumaya Burnett APRN.WIRE DROPPER - 10/18/2024 6:23 PM EDT Note Date & Type Note Facility 02-12-2025 Telephone encounter Note Brittany/ notified of below recommendation, verbalized understanding. Offered to schedule appt for 10/2025, she declined, will call for annual with lab orders. Marilou Varner LPN [facility] 02-12-2025 Miscellaneous Notes Brittany/ notified of below recommendation, verbalized understanding. Offered to schedule appt for 10/2025, she declined, will call for annual with lab orders. Marilou Varner LPN This is of doubtful significance. If he has no symptoms of liver or GI disease, monitor only and recheck next year here in our lab. Consume alcohol in moderation. Maintain a healthy weight. Schedule appointment if with related concerns. Rec'd and to pcp to review. AST was 42 Normal range per report is 0-40 Spouse (Brittany) calls to report that patient had blood work done through [facility] and some of his results were off including his liver enzymes but she was unsure of actual results as she didn't have them with her. Brittany wanting provider to review. Reports she is dropping a copy of labs off tomorrow. Offered appointment but wants labs reviewed by provider first. Zulema Rooney RN documented in this encounter [facility] 02-11-2025 Telephone encounter Note This is of doubtful significance. If he has no symptoms of liver or GI disease, monitor only and recheck next year here in our lab. Consume alcohol in moderation. Maintain a healthy weight. Schedule appointment if with related concerns. [facility] 02-08-2025 Telephone encounter Note Rec'd and to pcp to review. AST was 42 Normal range per report is 0-40 [facility] 02-05-2025 Telephone encounter Note Spouse (Brittany) calls to report that patient had blood work done through [facility] and some of his results were off including his liver enzymes but she was unsure of actual results as she didn't have them with her. Brittany wanting provider to review. Reports she is dropping a copy of labs off tomorrow. Offered appointment but wants labs reviewed by provider first. Zulema Rooney RN [facility] 10-18-2024 Note HNO ID: [id number] Author: SUMAYA LIND APRN.WIRE DROPPER Service: ? Author Type: Nurse Practitioner Type: Progress Notes Filed: 10/18/2024 18:30 Note Text: CC: Patient presents with: Physical HPI The patient consented to the use of ambient AI software for draft documentation of the visit consistent with [facility]?s Notice of Privacy Practices. Ervin is a 54-year-old male, with a history of tobacco use, presenting for an annual physical exam. Ervin denies any new medical problems since his last visit. He reports a history of smoking but quit years ago and currently uses chewing tobacco. He consumes alcohol, approximately a few beers per week, and denies any drug use, including e-cigarettes or vaping. Ervin is not currently exercising but describes himself as active at work. He acknowledges that his diet is not as healthy as he would like, stating, I should really get more than what I do. He takes a multivitamin and a probiotic. He expresses a desire to know his vitamin and trace mineral levels, asking if he could pay for the tests himself. He also inquires about tests to check his liver function and whether he has a fatty liver. He denies any new family medical problems. He had a colonoscopy in 2020 and is up to date on his screenings. He declines the flu and pneumonia vaccines. Review of Systems Constitutional: Negative. HENT: Negative. Eyes: Negative. Respiratory: Negative. Cardiovascular: Negative. Gastrointestinal: Negative. Endocrine: Negative. Genitourinary: Negative. Skin: Negative. Neurological: Negative. 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 MEDICATIONS multivitamin (DAILY MULTIPLE ORAL) Take 1 tablet by mouth once daily. L.acid/B.bifidum/B.animal/FOS (PROBIOTIC COMPLEX ORAL) Take 1 capsule by mouth once daily. FAMILY HISTORY Problem Relation Age of Onset other (Jack's) Mother alive in 70s Heart Father age 52, CHF Diabetes Father Genitourinary () Father hemodialysis Diabetes Brother Diabetes Brother Genitourinary () Brother end stage renal disease, renal transplant Social History Tobacco Use Smoking status: Former Current packs/day: 0.00 Average packs/day: 1 pack/day for 6.0 years (6.0 ttl pk-yrs) Types: Cigarettes Start date: 07/19/1993 Quit date: 07/19/1999 Years since quittin.2 Smokeless tobacco: Current Types: Chew Tobacco comments: chews tobacco daily Vaping Use Vaping status: Never Used Substance Use Topics Alcohol use: Not Currently Alcohol/week: 6.0 standard drinks of alcohol Types: 6 Cans of Beer (12oz) per week Drug use: No Comment: none in past 10 yrs BP 124/80 Pulse 79 Resp 12 Ht 168 cm (5' 6.14) Wt 81.6 kg (179 lb 14.3 oz) SpO2 96% BMI 28.91 kg/m? Physical Exam Vitals reviewed. Constitutional: Appearance: Normal appearance. HENT: Head: Normocephalic and atraumatic. Mouth/Throat: Mouth: Mucous membranes are moist. Pharynx: Oropharynx is clear. Eyes: Conjunctiva/sclera: Conjunctivae normal. Pupils: Pupils are equal, round, and reactive to light. Neck: Thyroid: No thyroid mass, thyromegaly or thyroid tenderness. Cardiovascular: Rate and Rhythm: Normal rate and regular rhythm. Pulses: Normal pulses. Heart sounds: Normal heart sounds. No murmur heard. Pulmonary: Effort: Pulmonary effort is normal. Breath sounds: Normal breath sounds. No wheezing, rhonchi or rales. Abdominal: General: Bowel sounds are normal. There is no distension. Palpations: Abdomen is soft. There is no hepatomegaly, splenomegaly or mass. Tenderness: There is no abdominal tenderness. Musculoskeletal: Right lower leg: No edema. Left lower leg: No edema. Lymphadenopathy: Cervical: No cervical adenopathy. Upper Body: Right upper body: No supraclavicular adenopathy. Left upper body: No supraclavicular adenopathy. Skin: General: Skin is warm and dry. Neurological: Mental Status: He is alert. Psychiatric: Mood and Affect: Mood normal. Health maintenance reviewed with patient: Influenza Vaccine(1) due on 2025 Pneumococcal Vaccine: 50+(1 of 1 - PCV) due on 10/18/2025 Depression Screening due on 02/15/2025 Anxiety Screening due on 02/15/2025 Diabetes Screening due on 10/13/2026 Lipid Screening due on 10/13/2028 Prostate Cancer Screening Discussion due on 10/13/2028 DTaP,Tdap,Td Vaccine(3 - Td or Tdap) due on 06/05/2030 Colorectal Cancer Screening due on 02/07/2031 Hepatitis C Screening Completed HIV Screening Completed Hepatitis B Va (more content not included)... [facility] 10-18-2024 History of Presen t illness Narrative CC: Patient presents with: Physical HPI The patient consented to the use of [employer] software for draft documentation of the visit consistent with [facility] s Notice of Privacy Practices. Ervin is a 54-year-old male, with a history of tobacco use, presenting for an annual physical exam. Ervin denies any new medical problems since his last visit. He reports a history of smoking but quit years ago and currently uses chewing tobacco. He consumes alcohol, approximately a few beers per week, and denies any drug use, including e-cigarettes or vaping. Ervin is not currently exercising but describes himself as active at work. He acknowledges that his diet is not as healthy as he would like, stating, I should really get more than what I do. He takes a multivitamin and a probiotic. He expresses a desire to know his vitamin and trace mineral levels, asking if he could pay for the tests himself. He also inquires about tests to check his liver function and whether he has a fatty liver. He denies any new family medical problems. He had a colonoscopy in 2020 and is up to date on his screenings. He declines the flu and pneumonia vaccines. Review of Systems Constitutional: Negative. HENT: Negative. Eyes: Negative. Respiratory: Negative. Cardiovascular: Negative. Gastrointestinal: Negative. Endocrine: Negative. Genitourinary: Negative. Skin: Negative. Neurological: Negative. 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 MEDICATIONS multivitamin (DAILY MULTIPLE ORAL) Take 1 tablet by mouth once daily. L.acid/B.bifidum/B.animal/FOS (PROBIOTIC COMPLEX ORAL) Take 1 capsule by mouth once daily. FAMILY HISTORY Problem Relation Age of Onset other (Queen Anne'S's) Mother alive in 70s Heart Father age 52, CHF Diabetes Father Genitourinary () Father hemodialysis Diabetes Brother Diabetes Brother Genitourinary () Brother end stage renal disease, renal transplant Social History Tobacco Use Smoking status: Former Current packs/day: 0.00 Average packs/day: 1 pack/day for 6.0 years (6.0 ttl pk-yrs) Types: Cigarettes Start date: 07/19/1993 Quit date: 07/19/1999 Years since quittin.2 Smokeless tobacco: Current Types: Chew Tobacco comments: chews tobacco daily Vaping Use Vaping status: Never Used Substance Use Topics Alcohol use: Not Currently Alcohol/week: 6.0 standard drinks of alcohol Types: 6 Cans of Beer (12oz) per week Drug use: No Comment: none in past 10 yrs BP 124/80 Pulse 79 Resp 12 Ht 168 cm (5' 6.14) Wt 81.6 kg (179 lb 14.3 oz) SpO2 96% BMI 28.91 kg/m Physical Exam Vitals reviewed. Constitutional: Appearance: Normal appearance. HENT: Head: Normocephalic and atraumatic. Mouth/Throat: Mouth: Mucous membranes are moist. Pharynx: Oropharynx is clear. Eyes: Conjunctiva/sclera: Conjunctivae normal. Pupils: Pupils are equal, round, and reactive to light. Neck: Thyroid: No thyroid mass, thyromegaly or thyroid tenderness. Cardiovascular: Rate and Rhythm: Normal rate and regular rhythm. Pulses: Normal pulses. Heart sounds: Normal heart sounds. No murmur heard. Pulmonary: Effort: Pulmonary effort is normal. Breath sounds: Normal breath sounds. No wheezing, rhonchi or rales. Abdominal: General: Bowel sounds are normal. There is no distension. Palpations: Abdomen is soft. There is no hepatomegaly, splenomegaly or mass. Tenderness: There is no abdominal tenderness. Musculoskeletal: Right lower leg: No edema. Left lower leg: No edema. Lymphadenopathy: Cervical: No cervical adenopathy. Upper Body: Right upper body: No supraclavicular adenopathy. Left upper body: No supraclavicular adenopathy. Skin: General: Skin is warm and dry. Neurological: Mental Status: He is alert. Psychiatric: Mood and Affect: Mood normal. Health maintenance reviewed with patient: Influenza Vaccine(1) due on 2025 Pneumococcal Vaccine: 50+(1 of 1 - PCV) due on 10/18/2025 Depression Screening due on 02/15/2025 Anxiety Screening due on 02/15/2025 Diabetes Screening due on 10/13/2026 Lipid Screening due on 10/13/2028 Prostate Cancer Screening Discussion due on 10/13/2028 DTaP,Tdap,Td Vaccine(3 - Td or Tdap) due on 06/05/2030 Colorectal Cancer Screening due on 02/07/2031 Hepatitis C Screening Completed HIV Screening Completed Hepatitis B Vaccine Discontinued Shingrix Vaccine Discontinued Covid-19 Vaccine Discontinued DATA REVIEWED: Most recent labs completed through [facility] screening Assessment/Plan 1. Wellness examination (Z00.00) Comprehensive physical examination performed; no abnormalities detected. Blood pressure initially elevated at 142/90 mmHg, but recheck showed 124/80 mmHg. Patient's weight is stable at 179 lbs. No new medical or family history concerns reported. Patient is not due for any screenings; colonoscopy in 2020 was normal. Patient inquires about vitamin and trace mineral levels, but no symptoms warranting such tests are present. - Discussed the importance of annual physical examinations. - Advised patient to maintain a healthy diet and consider taking vitamin D during the winter months. - Recommended limiting alcohol intake. - Patient to follow up in one year for the next annual physical examination. 2. Tobacco use (Z72.0) Patient chews tobacco; quit smoking cigarettes years ago. - Advised cessation of tobacco use. Prescription instructions reviewed with patient as applicable. Potential red flag symptoms discussed with the patient. Reviewed appropriate action plan to take if red flag symptoms occur. Patient agreeable to treatment plan. Sumaya Lind APRN.WIRE DROPPER documented in this encounter [facility] 10-18-2024 Instructions Sumaya Lind APRN.NOLAN - 10/18/2024 6:20 PM EDT We discussed your overall health and physical exam findings: - Your physical exam today was normal, and I do not have any concerns based on the exam. - Your blood pressure was initially elevated at 142/90 but improved to 124/80 when rechecked. This is consistent with your usual readings at home, which are typically in the 120/80 range. No further action is needed at this time. - Your weight today was 179 lbs, which is consistent with your previous weight of 176 lbs. We discussed your lifestyle and habits: - You reported that you are active at work but do not engage in specific exercise routines. I encourage incorporating regular physical activity into your routine to support overall health. - Your diet could include more fruits, vegetables, and whole grains. Consider making small, gradual changes to improve your nutrition. - You no longer smoke but do chew tobacco. Reducing or quitting tobacco use is recommended to lower your risk of long-term health issues. - You drink alcohol occasionally, about a few beers per week. Continue to limit alcohol consumption to support liver health and overall well-being. We discussed your preventive care and screenings: - Your colonoscopy in 2020 was normal, and you are not due for another until 2030. - You are up to date on all other screenings, including blood work and liver enzyme testing, which were normal at your last [facility] screening. - You declined the pneumonia vaccine today. We discussed your interest in vitamin and mineral levels: - Routine testing for vitamin and mineral levels is not typically recommended unless you have specific symptoms such as fatigue, dizziness, or shortness of breath. Based on your current health and diet, there is no indication for testing at this time. - If you are concerned about vitamin D levels, you may consider taking a vitamin D supplement during the winter months, as sunlight exposure is limited. Follow-up: - I recommend scheduling an annual physical exam once a year to monitor your health and address any new concerns. You can schedule this closer to the time it is due. - If you experience any new or worsening symptoms, such as chest pain, shortness of breath, significant fatigue, or other concerns, please contact our office. Let us know if you have any additional questions or concerns. documented in this encounter [facility] 05-22-2024 Note HNO ID: [id number] Author: ANABEL PRESLEY PA-C Service: ? Author Type: Physician Home Comfort Advisor Type: Progress Notes Filed: 05/26/2024 14:23 Note Text: Anabel Presley PA-C Department of Orthopaedics Orthopaedics [address] [facility] [address] Dept: [phone] Dept May 22, 2024 CHIEF COMPLAINT: New and Pain of the Right Shoulder and Last seen 09/16/17 with BP Right thumb fracture Mr. Ervin Ring is a 54 year old male who presents with intermittent pain in the anterior aspect of his right shoulder which has been bothering him since this past February. Patient states that he was out swimming and he believes he may have overdone it. Pain today is a 3 out of 10 intermittent aching. Pain only bothers him with certain activities, he has difficulty discerning which activities. He denies any nighttime pain, no weakness in the arm. 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 He has not taken any type of an oral anti-inflammatory. He is right-hand dominant. ASSESSMENT: M19.011 Arthritis of right acromioclavicular joint (primary encounter diagnosis) PLAN: Shoulder exam is rather benign, he does have some AC joint arthritis. We discussed trying a short course of an oral steroid paired with a month of an anti-inflammatory. Certainly if shoulder pain persist we may consider some additional imaging of the shoulder and/or a corticosteroid injection. Patient agrees to plan. Happy to see him back next month for reevaluation. Will continue to monitor patient for Arthritis of right acromioclavicular joint (primary encounter diagnosis), patient to schedule visit as per follow up discussed. Mr. Ervin Ring was advised as to contrast therapies and/or to take analgesics/anti-inflammatories as needed and all contraindications were reviewed. OBJECTIVE: Mr. Ervin Ring is a pleasant 54 year old in no apparent distress. Gen:There were no vitals taken for this visit. nl development, non obese, no deformities ENT: Normocephalic, normal hearing, moist mucosa CV: Pulses:Radial= 2+ and symmetric, capillary refill < 2 secs, no peripheral edema/varicosities Skin: no rash, bruising or lesions. Good turgor. Psych: cooperative and appropriate, alert and oriented x 3, good mood and affect. Musculoskeletal: Supple range of motion of the cervical spine without pain. Spurling signs are negative. No atrophy of the deltoid and shoulder musculature. Right shoulder is nontender to palpation over the SC joint and clavicle. Tender to palpation over the AC joint. No tenderness to palpation over the posterior shoulder, nontender at anterior lateral corner of the shoulder and greater tuberosity. Nontender at the bicipital groove and coracoid. Active range of motion is 165 degrees of forward elevation, 50 degrees external rotation, and internal rotation to the upper lumbar spine. Passive range of motion is 170 degrees, 55 degrees, respectively. No laxity with anterior and posterior stress. Positive Neer and negative Membreno impingement signs. 5/5 strength with supraspinatus, infraspinatus and subscapularis. Sensation is intact in the axillary, radial, median and ulnar nerve distribution Imaging: IMPRESSION: Negative Administrative Services Manager: MARLA Transcribe Date/Time: May 26 2024 11:14A Dictated by : JOCELYN CARDENAS MD This examination was interpreted and the report reviewed and electronically signed by: JOCELYN CARDENAS MD on May 26 2024 11:15AM EST Results-Findings * * *Final Report* * * DATE OF EXAM: May 22 2024 2:15PM [id number] - XR SHLDR >/=3V AP/EVETTE AP/OTHR RT / PROCEDURE REASON: Right shoulder pain, unspecified chronicity * * * * Physician Interpretation * * * * PROCEDURE: Right shoulder INDICATION: Right shoulder pain, unspecified chronicity .Right shoulder pain since February, pt went swimming and shoulder has hurt ever since. TECHNIQUE: XR SHLDR >/=3V AP/EVETTE AP/OTHR RT COMPARISON: None FINDINGS: No fractures or dislocations are seen. The glenohumeral and acromioclavicular joints are within normal limits. Subacromial space is maintained. No significant degenerative change is seen. No soft tissue calcifications are seen. Upper ribs are intact. Supporting Subjective Information Below: Past Surgical History: PAST SURGICAL HISTORY Procedure Laterality Date COLONOSCOPY FLX DX W/COLLJ SPEC WHEN PFRMD 02/07/2021 EXCISION HYDROCELE UNILAT Left 03/14/2015 EXCISION HYDROCELE UNILAT Right 03/08/2018 Medications: Current Outpatient Medications Medication Sig multivitamin (DAILY MULTIPLE ORAL) Take 1 tablet by mouth once daily. L.acid/B.bifidum/B.animal/FOS (PROBIOTIC COMPLEX ORAL) Take 1 capsule by mouth once daily. meloxicam (MOBIC) 15 mg tablet Take 1 tablet by mouth once daily. predniSONE (DELTASONE) 10 mg tablet 6 tabs po day 1, then 5 tabs day 2, 4 tabs day 3, 3 tabs day 4, 2 tabs day 5, 1 tab day 6. (more content not included)... [facility] 05-22-2024 History of Presen t illness Narrative Anabel Presley PA-C Department of Orthopaedics Orthopaedics [address] [facility] [place] [address] Dept: [phone] Dept May 22, 2024 CHIEF COMPLAINT: New and Pain of the Right Shoulder and Last seen 09/16/17 with BP Right thumb fracture Mr. Ervin Ring is a 54 year old male who presents with intermittent pain in the anterior aspect of his right shoulder which has been bothering him since this past February. Patient states that he was out swimming and he believes he may have overdone it. Pain today is a 3 out of 10 intermittent aching. Pain only bothers him with certain activities, he has difficulty discerning which activities. He denies any nighttime pain, no weakness in the arm. 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 He has not taken any type of an oral anti-inflammatory. He is right-hand dominant. ASSESSMENT: M19.011 Arthritis of right acromioclavicular joint (primary encounter diagnosis) PLAN: Shoulder exam is rather benign, he does have some AC joint arthritis. We discussed trying a short course of an oral steroid paired with a month of an anti-inflammatory. Certainly if shoulder pain persist we may consider some additional imaging of the shoulder and/or a corticosteroid injection. Patient agrees to plan. Happy to see him back next month for reevaluation. Will continue to monitor patient for Arthritis of right acromioclavicular joint (primary encounter diagnosis), patient to schedule visit as per follow up discussed. Mr. Ervin Ring was advised as to contrast therapies and/or to take analgesics/anti-inflammatories as needed and all contraindications were reviewed. OBJECTIVE: Mr. Ervin Ring is a pleasant 54 year old in no apparent distress. Gen:There were no vitals taken for this visit. nl development, non obese, no deformities ENT: Normocephalic, normal hearing, moist mucosa CV: Pulses:Radial= 2+ and symmetric, capillary refill < 2 secs, no peripheral edema/varicosities Skin: no rash, bruising or lesions. Good turgor. Psych: cooperative and appropriate, alert and oriented x 3, good mood and affect. Musculoskeletal: Supple range of motion of the cervical spine without pain. Spurling signs are negative. No atrophy of the deltoid and shoulder musculature. Right shoulder is nontender to palpation over the SC joint and clavicle. Tender to palpation over the AC joint. No tenderness to palpation over the posterior shoulder, nontender at anterior lateral corner of the shoulder and greater tuberosity. Nontender at the bicipital groove and coracoid. Active range of motion is 165 degrees of forward elevation, 50 degrees external rotation, and internal rotation to the upper lumbar spine. Passive range of motion is 170 degrees, 55 degrees, respectively. No laxity with anterior and posterior stress. Positive Neer and negative Membreno impingement signs. 5/5 strength with supraspinatus, infraspinatus and subscapularis. Sensation is intact in the axillary, radial, median and ulnar nerve distribution Imaging: IMPRESSION: Negative Administrative Services Manager: MARLA Transcribe Date/Time: May 26 2024 11:14A Dictated by : JOCELYN CARDENAS MD This examination was interpreted and the report reviewed and electronically signed by: JOCELYN CARDENAS MD on May 26 2024 11:15AM EST Results-Findings * * *Final Report* * * DATE OF EXAM: May 22 2024 2:15PM [id number] - XR SHLDR >/=3V AP/EVETTE AP/OTHR RT / PROCEDURE REASON: Right shoulder pain, unspecified chronicity * * * * Physician Interpretation * * * * PROCEDURE: Right shoulder INDICATION: Right shoulder pain, unspecified chronicity .Right shoulder pain since February, pt went swimming and shoulder has hurt ever since. TECHNIQUE: XR SHLDR >/=3V AP/EVETTE AP/OTHR RT COMPARISON: None FINDINGS: No fractures or dislocations are seen. The glenohumeral and acromioclavicular joints are within normal limits. Subacromial space is maintained. No significant degenerative change is seen. No soft tissue calcifications are seen. Upper ribs are intact. Supporting Subjective Information Below: Past Surgical History: PAST SURGICAL HISTORY Procedure Laterality Date COLONOSCOPY FLX DX W/COLLJ SPEC WHEN PFRMD 02/07/2021 EXCISION HYDROCELE UNILAT Left 03/14/2015 EXCISION HYDROCELE UNILAT Right 03/08/2018 Medications: Current Outpatient Medications Medication Sig multivitamin (DAILY MULTIPLE ORAL) Take 1 tablet by mouth once daily. L.acid/B.bifidum/B.animal/FOS (PROBIOTIC COMPLEX ORAL) Take 1 capsule by mouth once daily. meloxicam (MOBIC) 15 mg tablet Take 1 tablet by mouth once daily. predniSONE (DELTASONE) 10 mg tablet 6 tabs po day 1, then 5 tabs day 2, 4 tabs day 3, 3 tabs day 4, 2 tabs day 5, 1 tab day 6. polyethylene glycol 3350 (MIRALAX, GLYCOLAX) 17 gram/dose powder Use as directed for Miralax / Gatorade Bowel Prep Kit (Patient not taking: Reported on 02/16/2024) Bisacodyl (DULCOLAX) 5 mg tab Use as directed for Miralax / Gatorade Bowel Prep Kit (Patient not taking: Reported on 02/16/2024) No current facility-administered medications for this visit. Allergies: Patient has no known allergies. ROS: General (negative for fatigue, malaise, weight loss/gain) HEENT (negative for headache, earache, recent vision changes, sinus pain, sore throat) Respiratory (no recent shortness of breath, hemoptysis) CV (negative for chest tightness, palpitations) Musculoskeletal (see HPI) Psych (no depression, anxiety) This note was partially generated using [email or web address] voice recognition system, and there may be some incorrect words, spellings, and punctuation that were not noted in checking the note before saving. Anabel Presley PA-C Patient presents with: Right Shoulder - New, Pain Last seen 09/16/17 with BP Right thumb fracture AMB ROOMING INTAKE FLOWSHEET DATA Pain Pain Level: 3 Pain Location: Shoulder-Right Description: Sharp, Aching Duration Amount of Time: 3 Frequency: Intermittent Intervention/Comfort measure: (none) Patient here for evaluation right shoulder pain. Referred by Dr. Myers. States in February he went swimming and thinks he over did it. He had no swam for years. 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 He has pain with certain movements. X-rays done today. documented in this encounter [facility] 05-22-2024 History of Presen t illness Narrative Radiology Service Progress Note PATIENT NAME: Ervin Ring DATE OF SERVICE: May 22, 2024 TIME: 2:03 PM PATIENT IDENTITY VERIFICATION COMPLETED USING TWO (2) IDENTIFIERS: Name and Date of confirmed by patient verbally. FALL SCREENING: Has the patient had 2 falls in the last year or 1 fall with injury or currently using an Ambulatory Assistive Device (Walker, Cane, Wheelchair, Crutches, etc.)? No PATIENT GENDER DATA: Male PATIENT RELEVANT IMPLANT DATA REVIEWED: Yes PATIENT PRESENTS WITH AN IMPLANTABLE OR ATTACHED TOASTER OPERATOR: No RADIOLOGY DEPARTMENT: General X-ray: Exam(s) Completed: Upper Extremity X-Ray(s): Shoulder, AP / TRUE AP / AXILLARY right PERIPHERAL IV DATA: Not applicable SIGNED BY: RT Janine(R) May 22, 2024 2:03 PM documented in this encounter [facility] 05-22-2024 Note HNO ID: [id number] Author: PATO FOSTER RT(Leslie) Service: ? Author Type: Practice Architect Type: Progress Notes Filed: 05/22/2024 14:14 Note Text: Radiology Service Progress Note PATIENT NAME: Ervin Ring DATE OF SERVICE: May 22, 2024 TIME: 2:03 PM PATIENT IDENTITY VERIFICATION COMPLETED USING TWO (2) IDENTIFIERS: Name and Date of confirmed by patient verbally. FALL SCREENING: Has the patient had 2 falls in the last year or 1 fall with injury or currently using an Ambulatory Assistive Device (Walker, Cane, Wheelchair, Crutches, etc.)? No PATIENT GENDER DATA: Male PATIENT RELEVANT IMPLANT DATA REVIEWED: Yes PATIENT PRESENTS WITH AN IMPLANTABLE OR ATTACHED TOASTER OPERATOR: No RADIOLOGY DEPARTMENT: General X-ray: Exam(s) Completed: Upper Extremity X-Ray(s): Shoulder, AP / TRUE AP / AXILLARY right PERIPHERAL IV DATA: Not applicable SIGNED BY: RT Janine(R) May 22, 2024 2:03 PM [facility] 05-22-2024 Note HNO ID: [id number] Author: TIANNA NORRIS MA Service: ? Author Type: Mounted Police Officer Type: Progress Notes Filed: 05/26/2024 14:23 Note Text: Patient presents with: Right Shoulder - New, Pain Last seen 09/16/17 with BP Right thumb fracture AMB ROOMING INTAKE FLOWSHEET DATA Pain Pain Level: 3 Pain Location: Shoulder-Right Description: Sharp, Aching Duration Amount of Time: 3 Frequency: Intermittent Intervention/Comfort measure: (none) Patient here for evaluation right shoulder pain. Referred by Dr. Myers. States in February he went swimming and thinks he over did it. He had no swam for years. 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 He has pain with certain movements. X-rays done today. [facility] 04-18-2024 Telephone encounter Note Patient's calls and notified that consult order placed. transferred to formulation scientist to schedule appointment. La Mcmanus RN [facility] 04-18-2024 Miscellaneous Notes Patient's calls and notified that consult order placed. transferred to formulation scientist to schedule appointment. La Mcmanus RN Please call to schedule consult. Marilou Varner LPN ASSESSMENT/PLAN: 1. Tendinitis of right rotator cuff - ICD9: 726.10, ICD10: M75.81 - CONSULT TO ORTHOPAEDICS Brandyn Myers MD Pt's calling to see if pt can get a referral to a specialist regarding his right shoulder. Pain persisting. Pt has an apt with you on Wednesday04/21/24 and also wondering if he needs this if you are okay with referring him to a specialist. Please advise back. If she does not answer please leave a detailed message on phone and she will call back. Abby Smith LPN documented in this encounter [facility] 04-18-2024 Telephone encounter Note Please call to schedule consult. Marilou Varner LPN [facility] 04-17-2024 Telephone encounter Note ASSESSMENT/PLAN: 1. Tendinitis of right rotator cuff - ICD9: 726.10, ICD10: M75.81 - CONSULT TO ORTHOPAEDICS Brandyn Myers MD [facility] 04-17-2024 Telephone encounter Note Pt's calling to see if pt can get a referral to a specialist regarding his right shoulder. Pain persisting. Pt has an apt with you on Wednesday04/21/24 and also wondering if he needs this if you are okay with referring him to a specialist. Please advise back. If she does not answer please leave a detailed message on phone and she will call back. Abby Smith LPN [facility] 02-16-2024 Note HNO ID: [id number] Author: BRANDYN MYERS MD Service: ? Author Type: Physician Type: Progress Notes Filed: 02/16/2024 17:36 Note Text: This note was created using Tagentriter. Subjective Ervin Ring is a 54 year old male here with his . He had minor right shoulder pains off and on chronically. This weekend, he went swimming for the first time in decades. He woke up Wednesday with significant pain of the right anterior shoulder. This was improving now, without medication. He had chronic lumps in his heels that become uncomfortable at the end of the workday wearing his work boots. He had no pain wearing rubber shoes. He has been here only for urgent concerns, and does not come for check ups. He declined vaccines. He was here to review [facility] screening done 10/14/23. Review of Systems Constitutional: Negative for activity change and fatigue. 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 Drug use: No Comment: none in past 10 yrs Current Outpatient Medications Medication Sig multivitamin (DAILY MULTIPLE ORAL) Take 1 tablet by mouth once daily. L.acid/B.bifidum/B.animal/FOS (PROBIOTIC COMPLEX ORAL) Take 1 capsule by mouth once daily. polyethylene glycol 3350 (MIRALAX, GLYCOLAX) 17 gram/dose powder Use as directed for Miralax / Gatorade Bowel Prep Kit (Patient not taking: Reported on 02/16/2024) Bisacodyl (DULCOLAX) 5 mg tab Use as directed for Miralax / Gatorade Bowel Prep Kit (Patient not taking: Reported on 02/16/2024) No current facility-administered medications for this visit. Objective BP 122/76 (BP Site: Left Arm, BP Position: Sitting, BP Cuff Size: Large Adult) Pulse 76 Temp 37 ?C (98.6 ?F) (Temporal) Resp 16 Wt 79.8 kg (176 lb) BMI 27.95 kg/m? Physical Exam Constitutional: Appearance: Normal appearance. Musculoskeletal: Right shoulder: Tenderness and crepitus present. No swelling, deformity or bony tenderness. Normal range of motion. Normal strength. Left shoulder: Normal. Right ankle: Right Achilles Tendon: Defect present. No tenderness. Root's test negative. Left ankle: Left Achilles Tendon: Defect present. No tenderness. Root's test negative. Comments: Bony exostoses of both posterior heels. Assessment and Plan 1. Tendinitis of right rotator cuff - ICD9: 726.10, ICD10: M75.81 (primary diagnosis) - Improved with no specific treatment. Avoid repetitive overuse motions. Analgesics if needed. 2. Achilles tendinosis of both ankles - ICD9: 726.71, ICD10: M67.873, M67.874 - Podiatry offered. He declined for now. Padding. 3. Screening for depression - ICD9: V79.0, ICD10: Z13.31 Negative. - DEPRESSION SCREENING 4. Encounter for screening examination for other mental health and behavioral disorders - ICD9: V79.8, ICD10: Z13.39 Negative. - ANXIETY SCREENING 5. Low serum testosterone - ICD9: 790.99, ICD10: R79.89 - I doubt significance. He is well developed. If he desires further work up schedule appointment, as hormone levels can fluctuate. Brandyn Myers MD [facility] 02-16-2024 History of Presen t illness Narrative This note was created using Tagentriter. Subjective Ervin Ring is a 54 year old male here with his . He had minor right shoulder pains off and on chronically. This weekend, he went swimming for the first time in decades. He woke up Wednesday with significant pain of the right anterior shoulder. This was improving now, without medication. He had chronic lumps in his heels that become uncomfortable at the end of the workday wearing his work boots. He had no pain wearing rubber shoes. He has been here only for urgent concerns, and does not come for check ups. He declined vaccines. He was here to review [facility] screening done 10/14/23. Review of Systems Constitutional: Negative for activity change and fatigue. 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 Drug use: No Comment: none in past 10 yrs Current Outpatient Medications Medication Sig multivitamin (DAILY MULTIPLE ORAL) Take 1 tablet by mouth once daily. L.acid/B.bifidum/B.animal/FOS (PROBIOTIC COMPLEX ORAL) Take 1 capsule by mouth once daily. polyethylene glycol 3350 (MIRALAX, GLYCOLAX) 17 gram/dose powder Use as directed for Miralax / Gatorade Bowel Prep Kit (Patient not taking: Reported on 02/16/2024) Bisacodyl (DULCOLAX) 5 mg tab Use as directed for Miralax / Gatorade Bowel Prep Kit (Patient not taking: Reported on 02/16/2024) No current facility-administered medications for this visit. Objective BP 122/76 (BP Site: Left Arm, BP Position: Sitting, BP Cuff Size: Large Adult) Pulse 76 Temp 37 C (98.6 F) (Temporal) Resp 16 Wt 79.8 kg (176 lb) BMI 27.95 kg/m Physical Exam Constitutional: Appearance: Normal appearance. Musculoskeletal: Right shoulder: Tenderness and crepitus present. No swelling, deformity or bony tenderness. Normal range of motion. Normal strength. Left shoulder: Normal. Right ankle: Right Achilles Tendon: Defect present. No tenderness. Root's test negative. Left ankle: Left Achilles Tendon: Defect present. No tenderness. Root's test negative. Comments: Bony exostoses of both posterior heels. Assessment and Plan 1. Tendinitis of right rotator cuff - ICD9: 726.10, ICD10: M75.81 (primary diagnosis) - Improved with no specific treatment. Avoid repetitive overuse motions. Analgesics if needed. 2. Achilles tendinosis of both ankles - ICD9: 726.71, ICD10: M67.873, M67.874 - Podiatry offered. He declined for now. Padding. 3. Screening for depression - ICD9: V79.0, ICD10: Z13.31 Negative. - DEPRESSION SCREENING 4. Encounter for screening examination for other mental health and behavioral disorders - ICD9: V79.8, ICD10: Z13.39 Negative. - ANXIETY SCREENING 5. Low serum testosterone - ICD9: 790.99, ICD10: R79.89 - I doubt significance. He is well developed. If he desires further work up schedule appointment, as hormone levels can fluctuate. Brandyn Myers MD documented in this encounter [facility] Evaluation note Diagnosis Tendinitis of right rotator cuff- Primary Disorders of bursae and tendons in shoulder region, unspecified Achilles tendinosis of both ankles Screening for depression Encounter for screening examination for other mental health and behavioral disorders Low serum testosterone [facility] Tendinitis of right rotator cuff- Primary Disorders of bursae and tendons in shoulder region, unspecified [facility] Right shoulder pain, unspecified chronicity- Primary [facility] Diagnosis Right shoulder pain, unspecified chronicity [facility] Diagnosis Arthritis of right acromioclavicular joint- Primary Unspecified arthropathy, shoulder region documented in this encounter [facility] note* Diagnosis Wellness examination- Primary Tobacco use Tobacco use disorder documented in this encounter [facility] for referral (narrative)* Diagnostic Procedure Only (Routine) - New Request Specialty Diagnoses / Procedures Referred By Dawoodac t Referred To Contact XR IMAGING Diagnoses Right shoulder pain, unspecified chronicity Procedures XR SHOULDER GENERAL 3V OR MORE AP/TRUE AP/OTHER RIGHT RADEX SHOULDER COMPLETE MINIMUM 2 VIEWS Nicole Arteaga PA-C [address] [place] [address] [place] [id number] Referral ID Status Reason Start Date Expiration Date Visits Requested Visits Authorized [id number] New Request Auto-Generat ed Referral 05/31/2025 1 1 [facility] for visit Narrative* Diagnostic Procedure Only (Routine) - Closed Specialty Diagnoses / Procedures Referred By Mik castro Referred To Contact XR IMAGING Diagnoses Right shoulder pain, unspecified chronicity Procedures XR SHOULDER GENERAL 3V OR MORE AP/TRUE AP/OTHER RIGHT RADEX SHOULDER COMPLETE MINIMUM 2 VIEWS Nicole Arteaga PA-C [address] [place] [address] [place] [id number] Referral ID Status Reason Start Date Expiration Date V isits Requested Visits Authorized [id number] Closed Auto-Generate d Referral 05/02/2024 05/31/2025 1 1 [facility] Summary Purpose Family History No Family History Records FoundNo Family History Records FoundNo Family History Records Found Advance Directives No Advanced Directives Records FoundNo Advanced Directives Records FoundNo Advanced Directives Records Found Reason for Referral Specialty Diagnoses / Procedures Referred By Contac t Referred To Contact Orthopedics Diagnoses Tendinitis of right rotator cuff Procedures CONSULT TO ORTHOPAEDICS OFFICE/OUTPATIENT NEW HIGH [facility] 60 MINUTES Brandyn Myers MD [address] [place] [address] Referral ID Status Reason Start Date Expiration Date Visits Requested Visits Authorized [id number] Authorized PCP Requested Referral 04/17/2024 04/17/2025 1 1 Additional Source Comments (unrecognized sect ion and content) No Status Records FoundNo Status Records FoundNo Status Records Found INFORMATION SOURCE (unrecogn ized section and content) DATE CREATED AUTHOR 01/05/2018 [facility] DATE CREATED AUTHOR AUTHOR'S ORGANIZ ATION 08/29/2021 [facility] DATE CREATED AUTHOR AUTHOR'S ORGANIZ ATION 02/12/2025 [facility] Source Comments (unrecognize d section and content) In the event this informatio n is protected by the Federal Confidentiality of Alcohol and Drug Abuse Patient Records regulations: The Federal rules restrict any use of the information to criminally investigate or prosecute any alcohol or drug abuse patient.[facility] the event this information is protected by the Federal Confidentiality of Alcohol and Drug Abuse Patient Records regulations: The Federal rules restrict any use of the information to criminally investigate or prosecute any alcohol or drug abuse patient.[facility] the event this information is protected by the Federal Confidentiality of Alcohol and Drug Abuse Patient Records regulations: The Federal rules restrict any use of the information to criminally investigate or prosecute any alcohol or drug abuse patient.[facility] the event this information is protected by the Federal Confidentiality of Alcohol and Drug Abuse Patient Records regulations: The Federal rules restrict any use of the information to criminally investigate or prosecute any alcohol or drug abuse patient.[facility] the event this information is protected by the Federal Confidentiality of Alcohol and Drug Abuse Patient Records regulations: The Federal rules restrict any use of the information to criminally investigate or prosecute any alcohol or drug abuse patient.[facility] the event this information is protected by the Federal Confidentiality of Alcohol and Drug Abuse Patient Records regulations: The Federal rules restrict any use of the information to criminally investigate or prosecute any alcohol or drug abuse patient.[facility] the event this information is protected by the Federal Confidentiality of Alcohol and Drug Abuse Patient Records regulations: The Federal rules restrict any use of the information to criminally investigate or prosecute any alcohol or drug abuse patient.[facility] Reason for Visit (unrecogniz ed section and content) Reason Comments Right shoulder pain Reason Comments Consult Reason Comments New Pain Last seen 09/16/17 with BP Right thumb fra cture Specialty Diagnoses / Procedures Referred By Mik castro Referred To Contact Orthopedics Diagnoses Tendinitis of right rotator cuff Procedures CONSULT TO ORTHOPAEDICS OFFICE/OUTPATIENT NEW HIGH [facility] 60 MINUTES Brandyn Myers MD [address] [place] [address] Referral ID Status Reason Start Date Expiration Date V isits Requested Visits Authorized [id number] Closed PCP Requested Referral 04/17/2024 04/17/2025 1 1 Reason Comments Physical Reason Comments Results Care Teams (unrecognized sec tion and content) Loading Shovel Oiler Relationship Specialty Start Date End Date Brandyn Myers MD [address] [place] [address] PCP - General 08/27/08 Loading Shovel Oiler Relationship Specialty Start Date End Date Brandyn Myers MD [address] [place] [address] PCP - General 08/27/08 Loading Shovel Oiler Relationship Specialty Start Date End Date Brandyn Myers MD [address] [place] [address] PCP - General 08/27/08 Loading Shovel Oiler Relationship Specialty Start Date End Date Brandyn Myers MD [address] [place], [place] [id number] PCP - General 08/27/08 Loading Shovel Oiler Relationship Specialty Start Date End Date Brandyn Myers MD [address] [place] [address] PCP - General 08/27/08 Sumaya Lind, BUSINESS SOLUTIONS CONSULTANT.WIRE DROPPER [address] [place] [address] [employer] Internal Medicine 06/26/24 Loading Shovel Oiler Relationship Specialty Start Date End Date Brandyn Myers MD [address] [place], [place] [id number] PCP - General 08/27/08 Sumaya Lind, BUSINESS SOLUTIONS CONSULTANT.WIRE DROPPER [address] [place], [place] [address] [employer] Machine Operator Internal Medicine 06/26/24 FOR RECORDS PERTAINING TO PATIENTS WHO ARE OR HAVE BEEN ENROLLED IN A CHEMICAL DEPENDENCY/SUBSTANCEABUSE PROGRAM, SOME INFORMATION MAY BE OMITTED. This clinical summary was aggregated from multiple sources. Caution should be exercised in using it in the provision of clinical care. This summary normalizes information from multiple sources, and as a consequence, information in this document may materially change the coding, format and clinical context of patient data. In addition, data may be omitted in some cases. CLINICAL DECISIONS SHOULD BE BASED ON THE PRIMARY CLINICAL RECORDS. [facility] [employer] [facility]. provides no warranty or guarantee of the accuracy or completeness of information in this document.
[2025-07-11 16:13] VITALS: BP 127/74; PULSE 74; RESP 14; TEMP 36.7; O2SAT 98
== END 2025-07-11 16:14 | disposition home or self-care (01) ==
LOC: ED 15:53
PROVIDERS: Emergency Provider Emergency Medicine; PCP Internal Medicine; Visit Provider Emergency Medicine
DX: M79.661 Pain in right lower leg (principal)
CPT/HCPCS: 93971; 99282